=== PATIENT | female | born 1975 | race Caucasian/White ===

== ENCOUNTER 2021-09-06 03:55 | Emergency (ER) | payer MEDICAID ==
[~2021-09-06] VITALS: Ht 149.9 cm; Wt 47.7 kg
[~2021-09-06 03:55] MED LIST: CLIN-97 PO
[2021-09-06 03:59] VITALS: BP 118/73
[2021-09-06] MEDS ORDERED: CLIN150C2 PO (04:17)
== END 2021-09-06 04:29 | disposition home or self-care (01) ==
LOC: ER 03:55
DX: K02.9 Dental caries, unspecified (principal); F17.200 Nicotine dependence, unspecified, uncomplicated; Z88.0 Allergy status to penicillin; Z79.2 Long term (current) use of antibiotics
CPT/HCPCS: 99283

== ENCOUNTER 2022-01-08 20:57 | Emergency (ER) | payer MEDICAID ==
[~2022-01-08] VITALS: Ht 149.9 cm; Wt 47.7 kg
[2022-01-08 21:00] VITALS: BP 132/86
== END 2022-01-08 21:52 | disposition home or self-care (01) ==
LOC: ER 20:58
DX: B35.1 Tinea unguium (principal); Z88.0 Allergy status to penicillin; Z79.2 Long term (current) use of antibiotics
CPT/HCPCS: 99281

== ENCOUNTER 2022-06-22 17:44 | Emergency (ER) | payer MEDICAID ==
[~2022-06-22] VITALS: Ht 149.9 cm; Wt 41.8 kg
[2022-06-22 18:21] VITALS: BP 116/55
[2022-06-22] MEDS ORDERED: predniSONE 20 mg tablet PO ONE (21:40)
[2022-06-22] MEDS ORDERED: PRED20TA PO (21:57)
== END 2022-06-22 22:04 | disposition home or self-care (01) ==
LOC: ER 17:45
DX: R21 Rash and other nonspecific skin eruption (principal); Z88.0 Allergy status to penicillin; Z79.2 Long term (current) use of antibiotics; Z79.899 Other long term (current) drug therapy
CPT/HCPCS: 99283; J7512

== ENCOUNTER 2023-02-09 17:44 | Emergency (ER) | payer MEDICAID ==
[~2023-02-09] VITALS: Ht 149.9 cm; Wt 45.0 kg
[2023-02-09 17:46] VITALS: BP 100/71
[2023-02-09] MEDS ORDERED: LIDOcaine 1% W/epiNEPHrine 1:100,000 20ml vial SQ ONE (20:00)
[2023-02-09] MEDS ORDERED: SULF1TAB49 PO (20:42)
[2023-02-09] MEDS ORDERED: CEPH500C2 PO (20:42)
== END 2023-02-09 21:04 | disposition home or self-care (01) ==
LOC: ER 17:44
DX: L02.512 Cutaneous abscess of left hand (principal); Z88.0 Allergy status to penicillin; Z79.2 Long term (current) use of antibiotics
CPT/HCPCS: 10060; 99283; A6449

== ENCOUNTER 2023-08-03 19:24 | Emergency (ER) | payer MEDICAID ==
[~2023-08-03] VITALS: Ht 149.9 cm; Wt 45.5 kg
[2023-08-03 20:13] VITALS: BP 108/68; PULSE 109; RESP 16; TEMP 98.5; O2SAT 100
[2023-08-03] MEDS ORDERED: TETanus/Pertussis (Acell)/Diphther VAC/PF (Tdap-Adult) 0.5ml syringe IMVAC ONE (20:30)
[2023-08-03] MEDS ORDERED: clindamycin 150mg capsule PO ONE (20:55)
[2023-08-03] MEDS ORDERED: MUPI22OI30 TOP (20:56)
[2023-08-03] MEDS ORDERED: CLIN300C70 PO (20:56)
[2023-08-03] MEDS ORDERED: DOXY-356 PO (21:11)
== END 2023-08-03 21:32 | disposition home or self-care (01) ==
LOC: ER 19:25
DX: L73.2 Hidradenitis suppurativa (principal); Z88.0 Allergy status to penicillin; Z79.2 Long term (current) use of antibiotics; Z79.899 Other long term (current) drug therapy
CPT/HCPCS: 10061; 90471; 90715; 99284; A6449

== ENCOUNTER 2023-08-24 05:51 | Emergency (ER) | payer MEDICAID ==
[~2023-08-24] VITALS: Ht 149.9 cm; Wt 44.7 kg
[2023-08-24 06:41] VITALS: BP 110/93; PULSE 106; RESP 15; TEMP 98.7; O2SAT 97
[2023-08-24] MEDS ORDERED: HYDR-3965 PO (07:01)
[2023-08-24] MEDS ORDERED: SULF1TAB49 PO (07:01)
[2023-08-24] MEDS ORDERED: CEPH-585 PO (07:01)
== END 2023-08-24 07:35 | disposition home or self-care (01) ==
LOC: ER 05:52
DX: K02.9 Dental caries, unspecified (principal); Z88.0 Allergy status to penicillin; Z79.899 Other long term (current) drug therapy
CPT/HCPCS: 99283

== ENCOUNTER 2024-11-14 19:49 | Emergency (ER) | payer MEDICAID ==
[~2024-11-14] VITALS: Ht 149.9 cm; Wt 65.0 kg
[2024-11-14] MEDS ORDERED: PRED20TA PO (20:29)
[2024-11-14] MEDS ORDERED: GABA300C PO (20:29)
[2024-11-14] MEDS: dexamethasone sod phosphate 10mg/ml inj IM ONE (20:46)
[2024-11-14] MEDS: ketorolac trometh 15mg/ml vial 15 MG/ML ML IM ONE (20:46)
[2024-11-14 21:20] VITALS: BP 138/92; PULSE 84; RESP 16; TEMP 97.9; O2SAT 98
== END 2024-11-14 21:22 | disposition home or self-care (01) ==
LOC: ER 19:49
DX: M54.31 Sciatica, right side (principal); Z88.0 Allergy status to penicillin
CPT/HCPCS: 96372; 99284; J1100; J1885; 99283

== ENCOUNTER 2024-11-21 11:12 | Emergency (ER) | payer MEDICAID ==
[~2024-11-21] VITALS: Ht 149.9 cm; Wt 47.0 kg
[~2024-11-21 11:12] MED LIST changes: +GABA300C PO
[2024-11-21 13:44] LABS: BASOPHILS # (AUTO) 0.1 X10'3 (0-0.2); BASOPHILS % (AUTO) 0.6 % (0-1); EOSINOPHILS # (AUTO) 0.1 X10'3 (0-0.9); HEMATOCRIT 37.7 % (35.0-45.0); HEMOGLOBIN 12.4 g/dl (12.0-16.0); LYMPHOCYTES # (AUTO) 3.7 X10'3 (1.1-4.8); LYMPHOCYTES % (AUTO) 28.5 % (21-51); MEAN CORPUSCULAR HEMOGLOBIN 29.3 PG (27.0-31.0); MEAN CORPUSCULAR VOLUME 88.8 FL (78-98); MEAN PLATELET VOLUME 8.2 FL (7.4-10.4); MONOCYTES # (AUTO) 1.2 X10'3 (0-0.9); MONOCYTES % (AUTO) 8.9 % (2-12); NEUTROPHILS # (AUTO) 7.9 X10'3 (1.8-7.7); PLATELET COUNT 355 X10'3 (140-440); RED BLOOD COUNT 4.24 X10'6 (4.20-5.60); RED CELL DISTRIBUTION WIDTH 13.5 % (11.5-14.5); WHITE BLOOD COUNT 12.9 X10'3 (4.5-11.0)
[2024-11-21 13:55] LABS: ALBUMIN 3.4 G/DL (3.4-5.0); ANION GAP 1 (8-16); BLOOD UREA NITROGEN 14 MG/DL (7-18); BUN/CREATININE RATIO 21.5 (10.0-20.0); CALCIUM 8.1 MG/DL (8.5-10.1); CHLORIDE 103 MMOL/L (99-107); CREATININE 0.65 MG/DL (0.40-0.90); GLUCOSE 100 MG/DL (70-104); POTASSIUM 3.8 MMOL/L (3.5-5.1); SODIUM 140 MMOL/L (135-145); TOTAL CARBON DIOXIDE 35.8 MMOL/L (24-32); eCRCL 71 ML/MIN; eGFR > 90 ML/MIN
[2024-11-21 13:59] LABS: ETHANOL < 10 MG/DL (<10)
[2024-11-21 14:12] LABS: BILIRUBIN,URINE NEGATIVE (Neg); CLARITY,URINE CLEAR (Clear); COLOR,URINE YELLOW (Yellow); GLUCOSE, URINE NEGATIVE (Neg); KETONES,URINE TRACE mg/dl (Neg); LEUKOCYTE ESTERASE ,URINE TRACE (Neg); NITRITES, URINE NEGATIVE (Neg); OCCULT BLOOD,URINE NEGATIVE (Neg); PH,URINE 5.5 (4.8-8.0); PROTEIN,URINE NEGATIVE (Neg); UROBILINOGEN,URINE 0.2 E.U/dL (0.2-1.0)
[2024-11-21 14:19] LABS: MUCUS STRANDS FEW /LPF (Neg); RBC,URINE 0-2 /HPF (0-2); SQUAMOUS EPITHELIAL CELL,UR FEW /LPF (FEW); UA COLLECTION TYPE CLN CATCH MIDSTREAM; WBC,URINE 0-4 /HPF (0-4)
[2024-11-21 14:20] LABS: BACTERIA,URINE FEW /HPF (Neg)
[2024-11-21 14:29] LABS: URINE AMPHETAMINE SCREEN POSITIVE (Neg); URINE BARBITUATE SCREEN NEGATIVE (Neg); URINE BENZODIAZEPINES SCREEN NEGATIVE (Neg); URINE CANNABINOID SCREEN NEGATIVE (Neg); URINE COCAINE SCREEN NEGATIVE (Neg); URINE METHADONE SCREEN NEGATIVE (Neg); URINE OPIATE SCREEN NEGATIVE (Neg); URINE PHENCYCLIDINE SCREEN NEGATIVE (Neg)
[2024-11-21 14:53] VITALS: BP 103/68; PULSE 85; RESP 16; O2SAT 98
[2024-11-21 15:08] VITALS: TEMP 98.7
[2024-11-21 15:33] LABS: OCCULT BLOOD STOOL NEGATIVE (Neg)
== END 2024-11-21 15:10 | disposition home or self-care (01) ==
LOC: ER 11:12
DX: K92.2 Gastrointestinal hemorrhage, unspecified (principal); M54.41 Lumbago with sciatica, right side; M54.42 Lumbago with sciatica, left side; K13.79 Other lesions of oral mucosa; G89.29 Other chronic pain; M54.9 Dorsalgia, unspecified; Z88.0 Allergy status to penicillin; Z79.899 Other long term (current) drug therapy
CPT/HCPCS: 36415; 72131; 80048; 80305; 80320; 81001; 82272; 85025; 87088; 99285